=== PATIENT | male | born 1985 | race Caucasian/White ===

== ENCOUNTER 2021-04-30 08:13 | Emergency (ER) | payer BC, OTHER ==
[2021-04-30] MEDS ORDERED: Bacitracin 1 PK ONE (08:31)
[2021-04-30] MEDS ORDERED: Lidocaine 1% PF 5 ML VIAL ONE (08:31)
[2021-04-30] MEDS ORDERED: Boostrix 0.5 ML (Tdap) VIAL ONE (08:31)
== END 2021-04-30 09:18 | disposition home or self-care (01) ==
LOC: BURERS 08:13
DX: L03.011 Cellulitis of right finger (principal)
CPT/HCPCS: 90471; 90715